=== PATIENT | male | born 1985 | race Two or more races ===

== ENCOUNTER 2017-03-22 21:39 | Emergency (ER) | payer SELFPAY ==
[~2017-03-22] VITALS: Ht 177.8 cm; Wt 81.6 kg
== END 2017-03-23 02:05 | disposition home or self-care (01) ==
LOC: CED 21:39
DX: S33.5XXA Sprain of ligaments of lumbar spine, initial encounter (principal); V43.52XA Car driver injured in collision with other type car in traffic accident, initial encounter
CPT/HCPCS: 99283